=== PATIENT | male | born 1930 | race Hispanic/Latino ===

== ENCOUNTER → 2018-03-18 | Outpatient (CLI) | payer OTHER ==
[~2018-03-18] MED LIST: AMLO5TAB2 PO; ASPI-1181 PO; BENA40TA9 PO; GEMF600T3 PO; IOPAMIDOL-370 75 ML VIAL IV ONE; METF500T6 PO; METO25TA6 PO
== END | disposition home or self-care (01) ==
LOC: OIH 07:51
PROVIDERS: ATTEND Internal Medicine Critical Care Medicine
DX: J47.9 Bronchiectasis, uncomplicated (principal); N28.1 Cyst of kidney, acquired; R63.4 Abnormal weight loss
CPT/HCPCS: 71260; 74160; Q9967

== ENCOUNTER 2019-02-03 15:37 | Emergency (ER) | payer OTHER ==
[~2019-02-03 15:37] MED LIST changes: -AMLO5TAB2 PO; +AMLO5TAB9 PO; -GEMF600T3 PO; +GEMF600T5 PO; -IOPAMIDOL-370 75 ML VIAL IV ONE; +METF-444 PO; -METF500T6 PO
[2019-02-03 16:35] LABS: BASOPHILS % (AUTO) 1.2 % (0.0-5.0); EOSINOPHILS % (AUTO) 12.3 % (0.0-8.0); HEMATOCRIT 35.8 % (42-54); LYMPHOCYTES % (AUTO) 31.3 % (21.0-51.0); MEAN CORPUSCULAR HEMOGLOBIN 32.5 pg (27.0-33.0); MEAN CORPUSCULAR HGB CONC 35.2 g/dL (32.0-36.0); MEAN CORPUSCULAR VOLUME 92.5 fL (79-99); MONOCYTES % (AUTO) 7.4 % (3.0-13.0); NEUTROPHILS % (AUTO) 47.8 % (40.0-77.0); NUCLEATED RED BLOOD CELLS 0.1 % (0.0-0.19); PLATELET COUNT (AUTO) 117 K/uL (130-400); RED BLOOD CELL COUNT(AUTO) 3.87 MIL/uL (4.50-6.20); RED CELL DISTRIBUTION WIDTH 13.3 % (11.0-15.5); WHITE BLOOD COUNT (AUTO) 4.7 K/uL (4.8-10.8)
[2019-02-03 16:46] LABS: CREATININE 0.8 mg/dL (0.5-1.5); POTASSIUM 4.1 mmol/L (3.5-5.1)
[2019-02-03 16:48] LABS: INR 1.02 (0.85-1.15); PARTIAL THROMBOPLASTIN TIME 24.9 SEC (26.3-35.5); PROTHROMBIN TIME 10.7 SEC (9.6-11.6)
[2019-02-03 16:51] LABS: BILIRUBIN,TOTAL 0.4 mg/dL (0.2-1.0)
[2019-02-03 17:26] LABS: APPEARANCE,URINE Clear (CLEAR); BILIRUBIN,URINE Negative (NEGATIVE); COLOR,URINE Yellow (YELLOW); GLUCOSE, URINE (UA) Negative (NEGATIVE); KETONES,URINE Negative (NEGATIVE); LEUKOCYTE ESTERASE ,URINE Negative (NEGATIVE); NITRATE,URINE Negative (NEGATIVE); OCCULT BLOOD,URINE Negative (NEGATIVE); PH,URINE 5.5 (5.0-8.0); PROTEIN,URINE Negative (NEGATIVE); UROBILINOGEN,URINE 0.2 mg/dL (0.2-1.0)
== END 2019-02-03 18:47 | disposition home or self-care (01) ==
LOC: EDH 15:37
DX: E86.0 Dehydration (principal); R53.81 Other malaise; R53.83 Other fatigue; R79.1 Abnormal coagulation profile; I10 Essential (primary) hypertension; Z95.0 Presence of cardiac pacemaker
CPT/HCPCS: 36415; 71045; 80053; 81003; 83690; 84484; 85025; 85610; 85730; 87804; 93005; 96360; 96361

== ENCOUNTER → 2021-09-05 | Outpatient (CLI) | payer OTHER ==
[~2021-09-05] MED LIST changes: +AMLO-257 PO; -AMLO5TAB9 PO; -ASPI-1181 PO; +ASPI-1443 PO; -BENA40TA9 PO; +BENA40TA92 PO; -GEMF600T5 PO; +GEMF600T89 PO
== END | disposition home or self-care (01) ==
LOC: SHCH 09:55
PROVIDERS: ATTEND Internal Medicine Cardiovascular Disease
DX: I08.3 Combined rheumatic disorders of mitral, aortic and tricuspid valves (principal)
CPT/HCPCS: 93306; 93356